=== PATIENT | male | born 1965 | race African-American/Black ===

== ENCOUNTER 2018-02-27 09:46 | Day surgery (SDC) | payer OTHER ==
[2018-02-26 14:14] LABS: Absolute Lymphocytes (CBC) 2.4 K/uL (0.7-4.9); Absolute Monocytes 0.5 K/uL (0.1-1.3); Absolute Neutrophil 2.9 K/uL (1.8-8.0); Basophils % 1.4 % (0-1.3); Eosinophils % 7.1 % (0-4.4); Hematocrit 42.1 % (39.6-49.0); Lymphocytes % 37.5 % (15.3-44.8); MCH 27.2 pg (27.0-35.0); MCV 83.5 fL (80-100); MPV 8.3 fL (7.6-11.3); Monocytes % 7.7 % (3.3-12.3); RBC Red Blood Cell Count 5.05 M/uL (4.33-5.43)
[2018-02-26 14:23] LABS: Potassium 3.2 mEq/L (3.6-5.0)
--- NOTE | 2018-02-26 14:29 | RAD REPORT ---
EXAM DESCRIPTION: RAD - Chest Pa And Lat (2 Views) - 02/26/2018 2:13 pm CLINICAL HISTORY: Preop chest, pending soft tissue mass removal COMPARISON: None. TECHNIQUE: PA and lateral views of the chest were obtained. FINDINGS: The lungs are normal volume. Diaphragmatic eventration is present. Lateral view is limited in detail by body habitus. No acute lung parenchymal process suspected. No failure finding. Trachea is in the midline. Heart size is normal and central vasculature is within normal limits. No pleura l effusion or pneumothorax seen. No acute bony finding noted. No aortic abnormality. IMPRESSION: No acute cardiopulmonary process.
[2018-02-27] MEDS: Ringers Lactate 1,000 ML IV ONE ×2 (09:46→12:46)
[2018-02-27] MEDS ORDERED: CEFAZOLIN/SWI 1gm 1 GM/10 ML SYR ONE (10:10)
[2018-02-27] MEDS ORDERED: Ringers Lactate 1,000 ML IV ONE (11:54)
[2018-02-27] MEDS ORDERED: LIDOCAINE 1% MPF 5 ML VIAL ONE (12:36)
[2018-02-27] MEDS ORDERED: MIDAZOLAM HCL 2 MG/2 ML INJ ONE (12:36)
[2018-02-27] MEDS ORDERED: FENTANYL CITR 100 MCG/2 ML ONE (12:36)
[2018-02-27] MEDS ORDERED: PROPOFOL 200 MG/20 ML VIAL IV ONE (12:36)
[2018-02-27] MEDS ORDERED: KETOROLAC 30 MG/ML INJ ONE (14:25)
[2018-02-27] MEDS ORDERED: ONDANSETRON 4 MG/2 ML VIAL ONE (14:25)
--- NOTE | 2018-02-27 14:31 | P.BOP ---
Preoperative diagnosis: infected tender back deep subcutanoeus mass Postoperative diagnosis: same with abscess Primary procedure: Excisional biopsy of infected tender back deep subcutanoeus mass Secondary procedure: 6x5 cm Estimated blood loss: <10cc Specimen: mass, culture Findings: mass with abscess Anesthesia: General Complications: None Drain(s): Other Transferred to: Recovery Room Condition: Good
[2018-02-27] MEDS ORDERED: CODEINE 30MG/APAP 300MG TAB ONE (15:40)
--- NOTE | 2018-03-05 04:19 | OP ---
Date of Procedure: 02/27/2018 Surgeon: Rc Duran MD Preoperative Diagnosis: Infected tender back deep subcutaneous mass. Postoperative Diagnosis: Infected tender back deep subcutaneous mass. Procedure Performed: Excisional biopsy of infected tender back deep subcutaneous mass with drainage of an abscess, mass is about 6 x 5 cm. Specimen: Mass and culture. Findings: Mass with abscess. Anesthesia: General plus local. Indication For Procedure: This is the case of a male, who comes to us with an infected large tender back mass with cellulitis present. The benefits, alternatives, and risks of excision were fully expl ained, which include but are not limited to infection, bleeding, damage to adjacent structures, anest hesia complication, nonhealing wound, VA, and even . He also understands this may not relieve a ny symptoms, and he might need more than one surgical intervention. He understands also he might nee d wound care. He signed a consent. Description Of Procedure: The patient was brought to the operating room, placed in supine position. Previously, the area was marked by me and the patient in the holding room. The patient was placed i n lateral decubitus position with proper protection. Time-out was called. The area was prepped and draped in a sterile fashion. We proceeded to make an incision over that area until we found the mass deep in the subcutaneous tissue. Once we find that mass, at the end of this mass there is an absces s near the area of the fascia of the muscle. The muscle seems not to be involved, but the fascia see ms to be contaminated with the pus. We irrigated the area, clean it, also removed the mass. The are a was irrigated. Hemostasis obtained. The area was packed with wet-to-dry dressing. Cultures were obtained from that area. The patient tolerated the procedure well. The patient was sent to recovery in stable con dition. NORTH/SIGRID Voice ID: [id number] Report ID: [id number]
--- NOTE | 2018-03-05 04:25 | DS ---
Date of Discharge: 02/27/2018 Diagnosis: Infected back mass. Procedure: Excisional biopsy of infected back mass with a drainage of an abscess. Disposition: Home. Activity: As tolerated. No heavy lifting. Followup: Follow up in my office in 1 week. Call for appointment at [phone]. The patient advised to use wet-to-dry dressing daily. Medications: See orders. NORTH/SIGRID Voice ID: [id number] Report ID: [id number]
== END 2018-02-27 15:53 | disposition home or self-care (01) ==
LOC: OR 09:46
PROVIDERS: ATTEND Surgery
PROC: 0JB70ZZ Excision of Back Subcutaneous Tissue and Fascia, Open Approach (ICD-10-PCS; principal; 2018-02-27 11:15)
DX: L72.0 Epidermal cyst (principal); L02.212 Cutaneous abscess of back [any part, except buttock and flank]; I10 Essential (primary) hypertension; E66.9 Obesity, unspecified; Z88.6 Allergy status to analgesic agent
CPT/HCPCS: 36415; 71046; 80048; 85025; 87070; 87075; 87205; 88304; 88305; 93005; J0690; J2250; J2405; J3010

== ENCOUNTER 2020-03-02 11:10 | Inpatient (IN) | payer OTHER ==
[2020-03-02] MEDS ORDERED: ONDANSETRON 4 MG/2 ML VIAL ONE (11:48)
[2020-03-02] MEDS ORDERED: MORPHINE 2 MG/ML SYR ONE (11:48)
[2020-03-02] MEDS ORDERED: NA CHLORIDE 0.9% 1,000 ML ONE (11:48)
[2020-03-02] MEDS ORDERED: PIPER/TAZO/NS 3.375gm 3.375 GM/100 ML BAG ONE (11:48)
[2020-03-02] MEDS ORDERED: FAMOTIDINE 20 MG/2 ML VIAL IV ONE (11:48)
[2020-03-02 12:12] LABS: Absolute Lymphocytes (CBC) 1.3 K/uL (0.7-4.9); Basophils % 0.5 % (0-1.3); Hematocrit 41.1 % (39.6-49.0); Lymphocytes % 8.7 % (15.3-44.8); MPV 8.6 fL (7.6-11.3); RBC Red Blood Cell Count 4.98 M/uL (4.33-5.43)
[2020-03-02 12:14] LABS: Urine Blood 2+ (NEG); Urine Glucose NEGATIVE (NEG); Urine Protein 3+ (NEG)
[2020-03-02] MEDS ORDERED: ACETAMINOPHEN 500 MG TAB ONE (12:16)
--- NOTE | 2020-03-02 12:21 | RAD REPORT ---
EXAM DESCRIPTION: RAD - Chest Single View - 03/02/2020 11:55 am CLINICAL HISTORY: ABDOMINAL DISTENTION, cholecystitis, preoperative exam COMPARISON: February 26, 2018 TECHNIQUE: AP portable chest image was obtained 03/02/2020 11:55 am . FINDINGS: Lung volumes are low but clear of a focal mass or consolidation. No failure or volume over load. Heart and vasculature are normal. No measurable pleural effusion and no pneumothorax. No acute bony abnormality seen. No acute aortic findings suspected. IMPRESSION: No acute cardiopulmonary process.
[2020-03-02 12:23] LABS: Protime INR 1.5
[2020-03-02 12:44] LABS: ALT/SGPT 42 U/L (12-78); AST/SGOT 26 U/L (15-37); Albumin 3.2 g/dL (3.4-5.0); Alkaline Phosphatase 86 U/L (45-117); BUN Blood Urea Nitrogen 16 mg/dL (7-18); Bicarbonate 28 mmol/L (21-32); Bilirubin Direct 0.5 mg/dL (0-0.2); Bilirubin Total 1.1 mg/dL (0.2-1.0); Glucose Level 132 mg/dL (74-106); Lipase 42 U/L (73-393); Magnesium 2.2 mg/dL (1.8-2.4); NT PRO-BNP 143 pg/mL (<125); Potassium 2.9 mmol/L (3.5-5.1); Protein, Total 8.8 g/dL (6.4-8.2); Sodium Level 132 mmol/L (136-145); Troponin (Emerg Dept Use Only) < 0.02 ng/mL (0.0-0.045)
--- NOTE | 2020-03-02 13:06 | EDPHYS ---
Physician Documentation [facility] Name: Momo Saldivar Age: 54 yrs Sex: Male : 1965 Arrival Date: 03/02/2020 Time: 11:12 Bed 8 Private MD: Macho Rivera ED Physician Huan Patel HPI: 03/02 11:51 This 54 yrs old Black Male presents to ER via Wheelchair with complaints of Gallbladder.ankur 11:51 The patient presents with abdominal pain in the upper abdomen, in the right upper ankur quadrant. Onset: The symptoms/episode began/occurred 5 day(s) ago. The symptoms do not radiate. Associated signs and symptoms: none. The symptoms are described as constant, crampy. Modifying factors: The symptoms are alleviated by nothing, the symptoms are aggravated by food, movement, pressure. Severity of pain: At its worst the pain was moderate in the emergency department the pain is unchanged. The patient has experienced similar episodes in the past, a few times. Historical: - Allergies: 11:30 Aspirin; nausea; hb - Home Meds: 11:30 valsartan-hydrochlorothiazide 320-12.5 mg Oral tab 1 tab once daily [Active]; Coreg CR hb 40 mg Oral CM24 1 cap once daily [Active]; - PMHx: 11:30 Hypertension; hb - PSHx: 11:30 BACK SURG; hb - Immunization history:: Adult Immunizations up to date. - Social history:: Smoking status: Patient denies any tobacco usage or history of. - Family history:: not pertinent. ROS: 11:51 Constitutional: Negative for fever, chills, and weight loss, Eyes: Negative for injury, ankur pain, redness, and discharge, ENT: Negative for injury, pain, and discharge, Neck: Negative for injury, pain, and swelling, Cardiovascular: Negative for chest pain, palpitations, and edema, Respiratory: Negative for shortness of breath, cough, wheezing, and pleuritic chest pain, Back: Negative for injury and pain, : Negative for injury, bleeding, discharge, and swelling, MS/Extremity: Negative for injury and deformity, Skin: Negative for injury, rash, and discoloration, Neuro: Negative for headache, weakness, numbness, tingling, and seizure, Psych: Negative for depression, anxiety, suicide ideation, homicidal ideation, and hallucinations, Allergy/Immunology: Negative for hives, rash, and allergies, Endocrine: Negative for neck swelling, polydipsia, polyuria, polyphagia, and marked weight changes, Hematologic/Lymphatic: Negative for swollen nodes, abnormal bleeding, and unusual bruising. 11:51 Abdomen/GI: Positive for abdominal pain, nausea and vomiting, of the right upper quadrant. Exam: 11:51 Constitutional: This is a well developed, well nourished patient who is awake, alert, ankur and in no acute distress. Head/Face: Normocephalic, atraumatic. Eyes: Pupils equal round and reactive to light, extra-ocular motions intact. Lids and lashes normal. Conjunctiva and sclera are non-icteric and not injected. Cornea within normal limits. Periorbital areas with no swelling, redness, or edema. ENT: Nares patent. No nasal discharge, no septal abnormalities noted. Tympanic membranes are normal and external auditory canals are clear. Oropharynx with no redness, swelling, or masses, exudates, or evidence of obstruction, uvula midline. Mucous membranes moist. Neck: Trachea midline, no thyromegaly or masses palpated, and no cervical lymphadenopathy. Supple, full range of motion without nuchal rigidity, or vertebral point tenderness. No Meningismus. Chest/axilla: Normal chest wall appearance and motion. Nontender with no deformity. No lesions are appreciated. Cardiovascular: Regular rate and rhythm with a normal S1 and S2. No gallops, murmurs, or rubs. Normal PMI, no JVD. No pulse deficits. Respiratory: Lungs have equal breath sounds bilaterally, clear to auscultation and percussion. No rales, rhonchi or wheezes noted. No increased work of breathing, no retractions or nasal flaring. Back: No spinal tenderness. No costovertebral tenderness. Full range of motion. Male : Normal genitalia with no discharge or lesions. Skin: Warm, dry with normal turgor. Normal color with no rashes, no lesions, and no evidence of cellulitis. MS/ Extremity: Pulses equal, no cyanosis. Neurovascular intact. Full, normal range of motion. Neuro: Awake and alert, GCS 15, oriented to person, place, time, and situation. Cranial nerves II-XII grossly intact. Motor strength 5/5 in all extremities. Sensory grossly intact. Cerebellar exam normal. Normal gait. Psych: Awake, alert, with orientation to person, place and time. Behavior, mood, and affect are within normal limits. 11:51 Cardiovascular: Rate: normal, Rhythm: regular, Pulses: no pulse deficits are appreciated, Heart sounds: normal, Edema: is not appreciated, JVD: is not appreciated. Vital Signs: 11:28 BP 138 / 79; Pulse 101; Resp 16; Temp 98.5; Pulse Ox 96% on R/A; Weight 281.23 kg; hb Height 6 ft. 3 in. (190.50 cm); Pain 7/10; 14:16 BP 137 / 67; Pulse 94; Resp 20 S; Pulse Ox 97% on R/A; aa5 15:00 BP 128 / 67; Pulse 93; Resp 18 S; Pulse Ox 98% on R/A; aa5 11:28 Body Mass Index 77.49 (281.23 kg, 190.50 cm) hb MDM: 11:38 Patient medically screened. [facility] 11:54 Data reviewed: vital signs, nurses notes, lab test result(s), EKG, radiologic studies, [facility] CT scan, plain films. 03/02 11:14 Order name: Basic Metabolic Panel; Complete Time: 12:59 [facility] 03/02 11:14 Order name: CBC with Diff; Complete Time: 12:59 [facility] 03/02 11:14 Order name: LFT's; Complete Time: 12:59 [facility] 03/02 11:14 Order name: Magnesium; Complete Time: 12:59 [facility] 03/02 11:14 Order name: NT PRO-BNP; Complete Time: 12:59 [facility] 03/02 11:14 Order name: PT-INR; Complete Time: 12:59 [facility] 03/02 11:14 Order name: Troponin (emerg Dept Use Only); Complete Time: 12:59 [facility] 03/02 11:14 Order name: XRAY Chest (1 view); Complete Time: 12:59 [facility] 03/02 11:14 Order name: Lipase; Complete Time: 12:59 [facility] 03/02 11:51 Order name: Urine Dipstick--Ancillary (enter results); Complete Time: 12:59 bd 03/02 13:16 Order name: Lipase EDMS 03/02 11:14 Order name: EKG; Complete Time: 11:16 [facility] 03/02 11:14 Order name: Cardiac monitoring; Complete Time: 11:40 [facility] 03/02 11:14 Order name: EKG - Nurse/Tech; Complete Time: 11:46 [facility] 03/02 11:14 Order name: IV Saline Lock; Complete Time: 12:15 [facility] 03/02 11:14 Order name: Labs collected and sent; Complete Time: 12:15 [facility] 03/02 13:16 Order name: CONS Pharmacy Consult EDKS 03/02 13:16 Order name: CONS Physician Consult [facility] 03/02 13:16 Order name: CONS Physician Consult [facility] 03/02 13:17 Order name: Clear Liquid [facility] 03/02 11:14 Order name: O2 Per Protocol; Complete Time: 11:40 [facility] 03/02 11:14 Order name: O2 Sat Monitoring; Complete Time: 11:40 [facility] 03/02 11:14 Order name: Urine Dipstick-Ancillary (obtain specimen); Complete Time: 11:53 [facility] Administered Medications: 12:02 Drug: NS 0.9% 1000 ml Route: IV; Rate: 1 bolus; Site: left antecubital; aa5 12:02 Drug: Pepcid 20 mg Route: IVP; Site: left antecubital; aa5 12:10 Follow up: Response: No adverse reaction aa5 12:10 Drug: Zosyn 3.375 grams Route: IVPB; Infused Over: 60 mins; Site: left antecubital; aa5 12:16 Not Given (Patient Refused): morphine 2 mg IVP once; (PAIN>8) RASS on ADMN: Combtv4, aa5 Very Agttd3, Agttd2, Rstlss1, AlertClm0, Drwsy-1, LtSdtn-2, ModSdtn-3, DpSdtn-4, UnArsble-5 x2 12:16 Not Given (Patient Refused): Zofran (Ondansetron) 4 mg IVP once; over 2 minutes aa5 12:16 Drug: Tylenol 1000 mg {Note: with only a sip of water per MD. .} Route: PO; aa5 13:20 Follow up: Response: No adverse reaction aa5 13:20 Drug: Potassium Chloride 20 mEq Route: IV; Rate: per protocol; Site: left antecubital; aa5 15:15 Follow up: IV Status: Infusion continued upon admission aa5 13:20 Drug: Potassium Chloride 20 mEq Route: IV; Rate: per protocol; Site: left antecubital; aa5 15:15 Follow up: Response: No adverse reaction; IV Status: Completed infusion aa5 13:20 Drug: NS 0.9% with KCl 20 mEq/L 1000 ml Route: IV; Rate: 125 ml/hr; Site: left aa5 antecubital; 15:15 Follow up: IV Status: Infusion continued upon admission aa5 13:36 Drug: Potassium Chloride 20 mEq Route: PO; aa5 15:15 Follow up: Response: No adverse reaction aa5 Disposition: 03/02/20 13:05 Hospitalization ordered by Tree Mueller for Inpatient Admission. Preliminary diagnosis are Abdominal tenderness, Cholelithiasis, Cholecystitis, Unspecified kidney failure, Hypokalemia, Elevated white blood cell count. - Bed requested for Telemetry/MedSurg (Inpatient). - Status is Inpatient Admission. aa5 - Condition is Stable. - Problem is new. - Symptoms have improved. Signatures: Dispatcher [employer] EDMS Janie Berry Corey, MD MD cha Calderon, Audri RN RN [facility] Alka Hylton RN RN Corrections: (The following items were deleted from the chart) 13:25 13:05 Hospitalization Ordered by Tree Mueller MD for Inpatient Admission. Preliminary bd diagnosis is Abdominal tenderness; Cholelithiasis; Cholecystitis; Unspecified kidney failure; Hypokalemia; Elevated white blood cell count. Bed requested for Telemetry/MedSurg (Inpatient). Status is Inpatient Admission. Condition is Stable. Problem is new. Symptoms have improved. ankur 15:21 13:25 03/02/2020 13:05 Hospitalization Ordered by Tree Mueller MD for Inpatient aa5 Admission. Preliminary diagnosis is Abdominal tenderness; Cholelithiasis; Cholecystitis; Unspecified kidney failure; Hypokalemia; Elevated white blood cell count. Bed requested for Telemetry/MedSurg (Inpatient). Status is Inpatient Admission. Condition is Stable. Problem is new. Symptoms have improved. bd
--- NOTE | 2020-03-02 13:06 | ER ---
Nurse's Notes [facility] Name: Momo Saldivar Age: 54 yrs Sex: Male : 1965 Arrival Date: 03/02/2020 Time: 11:12 Bed 8 Private MD: Macho Rivera Diagnosis: Abdominal tenderness;Cholelithiasis;Cholecystitis;Unspecified kidney failure;Hypokalemia;Elevated white blood cell count Presentation: 03/02 11:28 Chief complaint: RUQ pain x 3-4 days, diarrhea today. Denies fever. Coronavirus screen: hb Proceed with normal triage. Ebola Screen: No symptoms or risks identified at this time. Initial Sepsis Screen: Does the patient meet any 2 criteria? HR > 90 bpm. No. Patient's initial sepsis screen is negative. Does the patient have a suspected source of infection? No. Patient's initial sepsis screen is negative. Risk Assessment: Do you want to hurt yourself or someone else? Patient reports no desire to harm self or others. Onset of symptoms was February 28, 2020. 11:28 Method Of Arrival: Wheelchair hb 11:28 Acuity: CHELSEY 3 hb Historical: - Allergies: 11:30 Aspirin; nausea; hb - Home Meds: 11:30 valsartan-hydrochlorothiazide 320-12.5 mg Oral tab 1 tab once daily [Active]; Coreg CR hb 40 mg Oral CM24 1 cap once daily [Active]; - PMHx: 11:30 Hypertension; hb - PSHx: 11:30 BACK SURG; hb - Immunization history:: Adult Immunizations up to date. - Social history:: Smoking status: Patient denies any tobacco usage or history of. - Family history:: not pertinent. Screenin:17 Abuse screen: Denies threats or abuse. Nutritional screening: No deficits noted. aa5 Tuberculosis screening: No symptoms or risk factors identified. Fall Risk None identified. Assessment: 11:45 General: Appears comfortable, Behavior is calm, cooperative. Pain: Complains of pain in aa5 right upper quadrant Pain does not radiate. Pain currently is 6 out of 10 on a pain scale. Quality of pain is described as tender, Pain began 2-3 days ago. Is continuous. Neuro: Level of Consciousness is awake, alert, obeys commands, Oriented to person, place, time, situation. Cardiovascular: Heart tones S1 S2 present Patient's skin is warm and dry. Rhythm is sinus rhythm. Respiratory: Airway is patent Respiratory effort is even, unlabored, Respiratory pattern is regular, symmetrical. GI: Abdomen is round obese, Bowel sounds present X 4 quads. Abdomen is tender to palpation in right upper quadrant Reports diarrhea. : No signs and/or symptoms were reported regarding the genitourinary system. EENT: No signs and/or symptoms were reported regarding the EENT system. Derm: Skin is dry, Skin is normal, Skin temperature is warm. Musculoskeletal: Range of motion: intact in all extremities. 12:16 Reassessment: Pt c/o headache at this time, MD notified. . aa5 12:16 Neuro: Level of Consciousness is awake, alert, obeys commands, Oriented to person, aa5 place, time, situation. Respiratory: Airway is patent Respiratory effort is even, unlabored, Respiratory pattern is regular, symmetrical. Derm: Skin is dry, Skin is normal, Skin temperature is warm. 13:20 Reassessment: Pt sitting up in bed watching TV. aa5 13:35 Reassessment: Unsuccessful attempt to call report to admitting nurse. . aa5 13:40 Reassessment: Pt sitting up in bed eating clear liquid diet, pt notified of wait time aa5 to be transported to admitting room. . 15:15 Neuro: Level of Consciousness is awake, alert, obeys commands, Oriented to person, aa5 place, time, situation. Respiratory: Airway is patent Respiratory effort is even, unlabored, Respiratory pattern is regular, symmetrical. Derm: Skin is dry, Skin is normal, Skin temperature is warm. Vital Signs: 11:28 BP 138 / 79; Pulse 101; Resp 16; Temp 98.5; Pulse Ox 96% on R/A; Weight 281.23 kg; hb Height 6 ft. 3 in. (190.50 cm); Pain 7/10; 14:16 BP 137 / 67; Pulse 94; Resp 20 S; Pulse Ox 97% on R/A; aa5 15:00 BP 128 / 67; Pulse 93; Resp 18 S; Pulse Ox 98% on R/A; aa5 11:28 Body Mass Index 77.49 (281.23 kg, 190.50 cm) hb ED Course: 11:12 Patient arrived in ED. as 11:12 Macho Rivera MD is Private Physician. as 11:12 Huan Patel MD is Attending Physician. ankur 11:29 Triage completed. hb 11:30 Arm band placed on. hb 11:35 Gracie Cardona, ROSSANA is Primary Nurse. aa5 11:45 Patient has correct armband on for positive identification. Placed in gown. Bed in low aa5 position. Call light in reach. Side rails up X 1. 11:[address] monitor on. Pulse ox on. NIBP on. mh5 11:51 Urine collected: clean catch specimen, tea colored. mh5 11:55 Missed attempt(s): 20 gauge in right forearm. Bleeding controlled, band aid applied, aa5 catheter tip intact. 11:56 XRAY Chest (1 view) In Process Unspecified. EDMS 12:00 Initial lab(s) drawn, by me, sent to lab. Inserted saline lock: 20 gauge in left aa5 antecubital area, using aseptic technique. 12:45 Notified ED physician of a critical lab result(s). Potassium 2.9. aa5 13:04 Tree Mueller MD is Hospitalizing Provider. ankur 15:15 No provider procedures requiring assistance completed. Patient admitted, IV remains in aa5 place. Administered Medications: 12:02 Drug: NS 0.9% 1000 ml Route: IV; Rate: 1 bolus; Site: left antecubital; aa5 12:02 Drug: Pepcid 20 mg Route: IVP; Site: left antecubital; aa5 12:10 Follow up: Response: No adverse reaction aa5 12:10 Drug: Zosyn 3.375 grams Route: IVPB; Infused Over: 60 mins; Site: left antecubital; aa5 12:16 Not Given (Patient Refused): morphine 2 mg IVP once; (PAIN>8) RASS on ADMN: Combtv4, aa5 Very Agttd3, Agttd2, Rstlss1, AlertClm0, Drwsy-1, LtSdtn-2, ModSdtn-3, DpSdtn-4, UnArsble-5 x2 12:16 Not Given (Patient Refused): Zofran (Ondansetron) 4 mg IVP once; over 2 minutes aa5 12:16 Drug: Tylenol 1000 mg {Note: with only a sip of water per MD. .} Route: PO; [facility] 13:20 Follow up: Response: No adverse reaction [facility] 13:20 Drug: Potassium Chloride 20 mEq Route: IV; Rate: per protocol; Site: left antecubital; aa5 15:15 Follow up: IV Status: Infusion continued upon admission [facility] 13:20 Drug: Potassium Chloride 20 mEq Route: IV; Rate: per protocol; Site: left antecubital; aa5 15:15 Follow up: Response: No adverse reaction; IV Status: Completed infusion [facility] 13:20 Drug: NS 0.9% with KCl 20 mEq/L 1000 ml Route: IV; Rate: 125 ml/hr; Site: left aa5 antecubital; 15:15 Follow up: IV Status: Infusion continued upon admission [facility] 13:36 Drug: Potassium Chloride 20 mEq Route: PO; [facility] 15:15 Follow up: Response: No adverse reaction [facility] Outcome: 13:05 Decision to Hospitalize by Provider. ankur 15:15 Admitted to Med/surg accompanied by tech, via wheelchair, with chart, Report called to [facility] ROSSANA MONTOYA 15:15 Condition: stable 15:15 Instructed on the need for admit, Demonstrated understanding of instructions. 15:21 Patient left the ED. [facility] Signatures: Dispatcher [employer] EDHuan Canales MD MD cha Martinez, Amelia as Calderon, Audri, RN RN [facility] Alka Hylton, Eva Phillip RN [facility] Corrections: (The following items were deleted from the chart) 12:19 11:50 Patient has correct armband on for positive identification. Placed in gown. Bed aa in low position. Call light in reach. Side rails up X 1. [facility]
[2020-03-02] MEDS ORDERED: MORPHINE 2 MG/ML SYR IV PRN (13:08)
[2020-03-02] MEDS ORDERED: ALBUTEROL 2.5 MG/3 ML NEB SOL NEB PRN ×2 (13:08→14:00)
[2020-03-02] MEDS ORDERED: ONDANSETRON 4 MG/2 ML VIAL IV PRN (13:08)
[2020-03-02] MEDS ORDERED: HYDRALAZINE HCL 20 MG/ML VIAL IV PRN (13:12)
[2020-03-02] MEDS ORDERED: NS KCL 20MEQ 1,000 ML IV ONE (13:19)
[2020-03-02] MEDS ORDERED: KCL 20 MEQ/100 mL IVPB 40 MEQ/200 ML BAG IV ONE (13:20)
[2020-03-02] MEDS ORDERED: POTASSIUM CL SA 10 MEQ TAB PO ONE (13:39)
[2020-03-02] MEDS: NS KCL 20MEQ 20 MEQ/1,000 ML BAG IV SCH (14:00)
--- NOTE | 2020-03-02 15:12 | P.HP ---
Certification for Inpatient With expected LOS: >2 Midnights Patient will require the following post-hospital care: None Practitioner: I am a practitioner with admitting privileges, knowledge of patient current condition, hospital course, and medical plan of care. Services: Services provided to patient in accordance with Admission requirements found in Title 42 Section 412.3 of the Code of Federal Regulations Patient History Date of Service: 03/02/20 Reason for admission: Right upper quadrant pain History of Present Illness: 54-year-old male with past medical history of hypertension, morbid obesity developed rectal polyp for an pain radiating to the epigastric area since the last 1 week and continue to worsen. Patient was evaluated by a primary care and started on antibiotics yesterday. He presented to the emergency room today because of persistent symptoms. He denies any cough or shortness of breath. He described pain Ativan at 10/10 with improvement with pain medication to 6/10. He admits to some nausea but no vomiting. Nausea has subsided since arrival in the ED. He denies any diarrhea. He had a CT of the abdomen done with finding of acute cholecystitis with associated cholelithiasis. Surgery has been discussed with plan to take patient to OR in a.m.. Patient potassium was noted low at 2.9 Allergies aspirin Allergy (Verified 02/27/18 10:51) Unknown Home Medications: Metoprolol Succinate [Toprol Xl] 100 mg PO DAILY 02/26/18 Valsartan/Hydrochlorothiazide [Valsartan-Hctz 320-25 mg Tab] 1 tab PO DAILY 02/26/18 Codeine/APAP [Tylenol W/Codeine #3 tab] 1 tab PO Q4HP PRN #30 tab 02/27/18 NaCl 0.9% Irr Bottle [Ns Irrigation Bottle] 1,000 ml IRR DAILY #1 btl 02/27/18 Review of Systems 10-point ROS is otherwise unremarkable Physical Examination - Physical Exam General: Alert, Oriented x3, Oriented x2, Obese HEENT: Atraumatic, Normocephalic, PERRLA, Mucous membr. moist/pink Neck: 2+ carotid pulse no bruit, JVD not distended Respiratory: Clear to auscultation bilaterally, Normal air movement Cardiovascular: Normal pulses, Regular rate/rhythm, Normal S1 S2 Gastrointestinal: Normal bowel sounds, Soft and benign, Non-distended, No rebound, No guarding, Tenderness (Right upper quadrant area) Musculoskeletal: No clubbing, No swelling Neurological: Normal speech, Normal strength at 5/5 x4 extr, Normal tone External genitalia: No edema, No lesions - Studies Laboratory Data (last 24 hrs) 03/02/20 12:00: PT 17.6 H, INR 1.50 03/02/20 12:00: WBC 15.4 H, Hgb 13.7, Hct 41.1, Plt Count 315 03/02/20 12:00: Sodium 132 L, Potassium 2.9 L*, BUN 16, Creatinine 1.89 H, Glucose 132 H, Magnesium 2.2, Total Bilirubin 1.1 H, AST 26, ALT 42, Alkaline Phosphatase 86, Lipase 42 L Imagings Data: CT abdomen reviewed Assessment and Plan - Problems (Diagnosis) (1) Cholecystitis, acute Current Visit: Yes Status: Acute (2) Cholecystitis with cholelithiasis Current Visit: Yes Status: Acute (3) HTN (hypertension) Current Visit: Yes Status: Acute - Advance Directives Does patient have a Living Will: No Does patient have a Durable POA for Healthcare: No Physician Review: Patient Assessed, Agree with Above Assessment and Plan Physician Review Additional Text: Acute cholecystitis-we start patient on empirical antibiotics with Zosyn -will replete potassium -follow surgery planned falls cholecystectomy in a.m. -we keep patient NPO past midnight , but start clear liquid diet for now Hypertension-controlled, hold Diovan/HCTZ for now -resume metoprolol -we do IV hydralazine p.r.n. Hypokalemia-will replete with 40 mEq x1, start NS with KCl. DVT prophylaxis-subcutaneous heparin Advanced directives patient is full code. Disposition -possible hospital stay for 24-48 hr
[2020-03-02 15:44] VITALS: BMI 39.9
[2020-03-02] MEDS: HEPARIN 5000 UNIT/ML 1 ML VIAL SQ SCH (16:55)
[2020-03-02] MEDS ORDERED: INFLUENZA VACCINE (for 3y+) 0.5 ML DOSE IMVAC ONE (17:00)
[2020-03-02] MEDS: PIPER/TAZO/NS 3.375gm 3.375 GM/100 ML BAG IVPB SCH (17:24)
[2020-03-02] MEDS: FAMOTIDINE 20 MG/2 ML VIAL IV SCH (21:02)
[2020-03-03] MEDS: NS KCL 20MEQ 20 MEQ/1,000 ML BAG IV SCH ×3 (00:13→20:00)
[2020-03-03] MEDS: PIPER/TAZO/NS 3.375gm 3.375 GM/100 ML BAG IVPB SCH ×3 (00:14→16:53)
[2020-03-03] MEDS: HEPARIN 5000 UNIT/ML 1 ML VIAL SQ SCH ×3 (00:21→17:00)
[2020-03-03 04:29] LABS: Absolute Lymphocytes (CBC) 1.3 K/uL (0.7-4.9); Basophils % 0.6 % (0-1.3); Hematocrit 36.2 % (39.6-49.0); Lymphocytes % 10.8 % (15.3-44.8); MPV 8.5 fL (7.6-11.3); RBC Red Blood Cell Count 4.35 M/uL (4.33-5.43)
[2020-03-03 04:40] LABS: Bilirubin Total 0.9 mg/dL (0.2-1.0); Potassium 3.2 mmol/L (3.5-5.1); Protein, Total 7.5 g/dL (6.4-8.2)
[2020-03-03 04:41] LABS: Albumin 2.6 g/dL (3.4-5.0)
[2020-03-03] MEDS: METOPROLOL XL 100 MG TAB PO SCH (08:25)
[2020-03-03] MEDS: FAMOTIDINE 20 MG/2 ML VIAL IV SCH ×2 (08:27→22:09)
[2020-03-03] MEDS ORDERED: Ringers Lactate 1,000 ML IV ONE ×2 (08:50→11:09)
[2020-03-03] MEDS ORDERED: dexAMETHasone 10 MG/ML VIAL ONE (09:50)
[2020-03-03] MEDS ORDERED: LIDOCAINE 2% MPF 5 ML VIAL ONE (09:50)
[2020-03-03] MEDS ORDERED: MIDAZOLAM HCL 2 MG/2 ML INJ ONE (09:50)
[2020-03-03] MEDS ORDERED: FENTANYL CITR 100 MCG/2 ML ONE (09:50)
[2020-03-03] MEDS ORDERED: propofoL 200 MG/20 ML VIAL IV ONE (09:50)
[2020-03-03] MEDS ORDERED: ROCURONIUM 50 MG/5 ML VIAL IV ONE (09:53)
--- NOTE | 2020-03-03 09:58 | PREOPCON ---
Date of Consultation: 03/02/2020 Reason For Consultation: Abdominal pain. History Of Present Illness: Patient is a 54-year-old gentleman, came to the emergency room with righ t upper quadrant abdominal pain off and on for the last week, worsening. He has nausea, some bloatin g, and no belching or heartburn. No diarrhea or constipation. No blood in the stool. No dysuria, h ematuria, no sore throat, runny nose, cough, headaches, or dizziness. No chest pain. No fever or ch ills. Review of Systems: Otherwise unremarkable. Past Medical History: Significant for high blood pressure. Past Surgical History: Back surgery. Allergies: INCLUDE ASPIRIN. Social History: Patient does not smoke. Drinks very occasionally. Family History: Significant for high blood pressure. Physical Examination: Vital Signs: Stable. He is currently afebrile. General: He is awake, alert. Head and Neck: There is no evidence of icterus. Cranial nerves 2 through 12 are grossly within norm al limits. No neck masses. No JVD. Throat clear. Neck supple. Chest: Clear. Heart: S1 and S2. Abdomen: Soft, nondistended. Positive bowel sounds. Positive right upper quadrant tenderness with rebound. No rigidity or guarding. Extremity: Adequately perfused. Nontender. Neuro: Nonfocal. Laboratory Data: White count was 15.4 yesterday, is 11.6 this morning. INR is 1.5. Chemistry showe d potassium to be 2.9 and today is 3.2. His AST, ALT, alkaline phosphatase all within normal limits and today the total bilirubin is within normal limits. Lipase was also within normal limits. His CT of the abdomen and pelvis was reviewed with the radiologist, and it shows grossly abnormal gallbladd er with wall thickening, gallstones and significant stranding in the adjacent fat. Assessment: 1.Acute cholecystitis and cholelithiasis. 2.Hypokalemia. Recommendations: Admit, n.p.o., IV fluid, IV antibiotic, to the OR for laparoscopic cholecystectomy, possible open. The patient understands the risks, benefits, and alternatives and agrees to procedur e. The plan of care was discussed with Dr. Mendoza. MO/SIGRID Voice ID: [id number] Report ID: [id number]
[2020-03-03] MEDS ORDERED: FENTANYL CITR 250 MCG/5 ML ONE (10:27)
[2020-03-03] MEDS ORDERED: KETOROLAC 30 MG/ML INJ ONE (11:21)
[2020-03-03] MEDS ORDERED: NEOSTIGMINE 1 MG/ML -5 ML ONE (11:21)
[2020-03-03] MEDS ORDERED: GLYCOPYRROLATE 0.2 MG/ML SYR ONE (11:21)
[2020-03-03] MEDS ORDERED: MORPHINE 10 MG/ML VIAL ONE (11:43)
--- NOTE | 2020-03-03 11:43 | P.OP ---
Plastics Technician: Michelle CHARLES Preoperative diagnosis: Acute Cholecystitis and Cholelithiasis Postoperative diagnosis: Same, Acute Gangrenous Cholecystitis Primary procedure: Diagnostic Laparoscopy, Open Cholecystectomy Anesthesia: General Estimated blood loss: Minimal Specimen: GB Findings: as above Complications: None Drain(s): SAMANTHA drain Transferred to: Recovery Room Condition: Good
[2020-03-03] MEDS ORDERED: HYDROMORPHONE HCL 1 MG/ML INJ IV PRN (11:56)
--- NOTE | 2020-03-03 15:55 | EKG ---
Test Date: 2020-03-02 Test Time: 11:51:16 Customs Guard: LOREN MEASUREMENT RESULTS: Intervals: Rate: 106 OK: 174 QRSD: 86 QT: 328 QTc: 435 Jewett: P: 43 OK: 174 QRS: 52 T: 33 INTERPRETIVE STATEMENTS: Sinus tachycardia Nonspecific ST and T wave abnormality Abnormal ECG Compared to ECG 02/26/2018 13:44:40 ST (T wave) deviation now present Sinus rhythm no longer present Electronically Signed On 03-03-20 15:50:49 CDT by Thuan Wise
--- NOTE | 2020-03-03 16:13 | P.PN ---
Subjective Date of Service: 03/03/20 Chief Complaint: Right upper quadrant pain Status post laparoscopic cholecystectomy today. Patient noted to have gangrenous gallbladder. He was seen after surgery and had no complain. Physical Examination - Vital Signs Temperature: 99.2 F Blood Pressure: 146/72 Pulse: 82 Respirations: 16 Pulse Ox (%): 90 - Physical Exam General: Alert, In no apparent distress, Oriented x3 HEENT: Mucous membr. moist/pink Neck: Supple Respiratory: Clear to auscultation bilaterally, Normal air movement Cardiovascular: No edema, Regular rate/rhythm, Normal S1 S2 Gastrointestinal: Normal bowel sounds, Soft and benign, Other (SAMANTHA drain-RUQ.) Musculoskeletal: No erythema Integumentary: No rashes, No erythema Neurological: Other (Nonfocal) Assessment And Plan - Current Problems (Diagnosis) (1) Cholecystitis, acute Current Visit: Yes Status: Acute (2) HTN (hypertension) Current Visit: Yes Status: Acute - Plan Status post laparoscopic cholecystectomy with SAMANTHA drain left in place. Continue IV antibiotics and supportive measures. Duration of antibiotics per Dr. Blair. Diet resumed. Leukocytosis has trended down. Monitor CBC.
[2020-03-03] MEDS ORDERED: D5.45NS W/KCL 20MEQ 20 MEQ/1,000 ML BAG IV SCH (17:00)
--- NOTE | 2020-03-03 17:24 | CON ---
Date of Consultation: 03/03/2020 Reason For Consultation: Elevated BUN and creatinine, fluid management. History Of Present Illness: This is a 54-year-old gentleman with significant past medical history. All the information has been obtained from the record as the patient is seen in the Recovery, post carballo rgery, sedated, 54-year-old black gentleman with significant past medical history of hypertension, mo rbid obesity, rectal polyps. Patient came to the hospital complaining of some abdominal pain, nausea without any vomiting, found to have cholecystitis. The patient's primary workup showed elevation in BUN and creatinine. For that reason, we have been consulted. Reviewing the record for the patient upon arrival, creatinine 1.8 with GFR of 45. The patient was started on hydration. Creatinine trend ed down to 1.5, GFR of 55. The patient, back in 2018, had creatinine 1.5, GFR of 56. Past Medical History: Includes: 1.Hypertension. 2.Hyperlipidemia. 3.Chronic kidney disease, baseline creatinine 1.5, GFR of 55. Past Surgical History: Includes cholecystectomy. Allergies: TO ASPIRIN. Home Medications: Include metoprolol, valsartan, hydrochlorothiazide, codeine. Family History: Unobtainable. Review of Systems: Unobtainable. Physical Examination: General: Patient lying in bed, sedated, blood pressure of 146/72, pulse of 82, afebrile. Chest: Clear to auscultation. Heart: S1, S2. Regular. Abdomen: Mild tenderness in the right upper quadrant with drainage. Extremities: Trace edema. Neuro: The patient is sedated. Moving 4 extremities. No focal. Laboratory Data: Sodium 135, potassium 4.2, bicarb 24, BUN 15, creatinine 1.5, calcium 8.8. WBC 11. 6, H and H of 12.1/36.2, platelets 278. CT negative for obstruction. Assessment And Plan: 1.Acute kidney injury on chronic kidney disease secondary to prerenal toxic acute tubular necrosis, back to baseline, looked to me still on the dry side. I am going to continue hydration. I agree wit h holding ARB and hydrochlorothiazide for the time being and we will monitor the patient. 2.I am going to go ahead and send for PTH, protein, creatinine to stage the patient. 3.Hypokalemia. We will supplement. 4.Hypertension with the presence of acute kidney injury. Hold hydrochlorothiazide and ARB. 5.Cholecystitis. The patient was started on antibiotic. We will follow up with Surgery and primary . SHERRELL Voice ID: [id number] Report ID: [id number]
[2020-03-03 20:20] LABS: Urine Protein/Creatinine Ratio 0.68 ratio (<0.15)
--- NOTE | 2020-03-03 22:48 | OP ---
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 Preoperative Diagnosis: Acute cholecystitis and cholelithiasis. Postoperative Diagnoses: Acute cholecystitis and cholelithiasis with acute gangrenous cholecystitis. Estimated Blood Loss: Minimal. Specimens: Gallbladder. Findings: As above. Procedure: Diagnostic laparoscopy and open cholecystectomy. Anesthesia: General. Complications: None. Drains: SAMANTHA #10 flat. Disposition: Patient tolerated the procedure in stable condition, taken to Recovery in good conditio n. Procedure In Detail: Patient was brought to the OR and placed in supine position. General anesthesi a was begun. Patient was prepped and draped in usual sterile fashion. Marcaine 0.5% infiltrated loc ally. A #15 blade was used to make a 1 cm supraumbilical incision. Subcutaneous tissue divided. Fa scia was identified and divided. #1 Vicryl stay suture was placed. Peritoneal cavity was entered wi th sharp and blunt dissection. 12 mm trocar was placed into the peritoneal cavity under direct visio n. Pneumoperitoneum was established and then, a 5 mm trocar was placed in the epigastric region just to the right of midline. At this time, laparoscopy revealed extensive adhesions to the gallbladder, which was very difficult to see. Once the gallbladder was seen, it was gangrenous, very difficult t o grasp, very thin, very friable. Therefore, at this time based on the clinical condition, I opted t o convert this to an open case. Then, a right subcostal incision was made. Subcutaneous tissue divi ded. Fascia was identified and divided. The posterior sheath identified and divided and then, sharp and blunt dissection proceeded to take all the omental adhesions off the gallbladder. The gallbladd er was necrotic, it was gangrenous, it was intrahepatic and then retrograde dissection of the gallbla dder from the liver bed was begun. Cautery was used to control of the bleeding and cystic duct and c ystic artery were identified at the end of the dissection and clips were placed and gallbladder was r emoved and sent to Pathology as specimen. The entire right upper quadrant was irrigated. There was oozing noted from the liver bed which was controlled with cautery and then, Renetta and Surgicel was u tilized. The Keron-Tanner drain, #10 flat, was placed in the gallbladder fossa and secured with 3-0 nylon. This was observed for several minutes and there was no evidence of bleeding or bile leakage appreciated. All of the entire length of the gallbladder was very necrotic and gangrenous. Subseque ntly, there was no evidence of bleeding or bile leakage appreciated. Then, all counts were correct. Then, the posterior sheath was closed with #1 chromic. Wound was irrigated. Bleeding was controlle d with cautery. Then, #2 nylon was used to close the fascia. Subcutaneous wounds were irrigated. B leeding was controlled with cautery and 3-0 chromic was used to approximate the subcutaneous tissue l oosely and a staple was used to close the skin, stay sutures at the umbilicus tied to each other acro ss the fascial defect. Subcutaneous wounds were irrigated. Bleeding was controlled with cautery. 3 -0 chromic was used for subcutaneous tissue and staple was used to close the skin. Sterile dressing was applied. Patient was awakened and taken to Recovery in good general condition. MO/JONHL Voice ID: [id number] Report ID: [id number]
[2020-03-04] MEDS: PIPER/TAZO/NS 3.375gm 3.375 GM/100 ML BAG IVPB SCH ×3 (00:08→17:22)
[2020-03-04] MEDS: HEPARIN 5000 UNIT/ML 1 ML VIAL SQ SCH ×3 (00:10→17:24)
[2020-03-04 05:03] LABS: Absolute Lymphocytes (CBC) 0.6 K/uL (0.7-4.9); Basophils % 0.6 % (0-1.3); Lymphocytes % 6.4 % (15.3-44.8); MPV 8.1 fL (7.6-11.3); RBC Red Blood Cell Count 4.13 M/uL (4.33-5.43)
[2020-03-04 05:34] LABS: Albumin 2.5 g/dL (3.4-5.0); Magnesium 2.4 mg/dL (1.8-2.4); Phosphorus 1.4 mg/dL (2.5-4.9); Potassium 3.3 mmol/L (3.5-5.1); Thyroid Stimulating Hormone 0.306 uIU/mL (0.360-3.740); Uric Acid 4.5 mg/dL (3.5-7.2)
[2020-03-04] MEDS: NS KCL 20MEQ 20 MEQ/1,000 ML BAG IV SCH (06:00)
[2020-03-04] MEDS: HYDROCODONE/APAP 7.5/325 MG TAB PO PRN ×2 (06:20→14:47)
[2020-03-04 08:43] VITALS: O2SAT 98
--- NOTE | 2020-03-04 09:47 | PN ---
Date of Progress Note: 03/04/2020 Subjective: Patient is awake, alert, tolerating diet, ambulating, pain controlled on p.o. pain medic ation, afebrile. Laboratory data reviewed. Objective: VITAL SIGNS: Stable, afebrile. ABDOMEN: Benign. Assessment: Status post open cholecystectomy. Recommendations: Continue IV antibiotics for another 24 hours. Probable discharge tomorrow. Patien t is clinically doing very well. /MODL Voice ID: [id number] Report ID: [id number]
[2020-03-04] MEDS: METOPROLOL XL 100 MG TAB PO SCH (09:54)
[2020-03-04] MEDS: FAMOTIDINE 20 MG/2 ML VIAL IV SCH ×2 (09:56→21:03)
[2020-03-04] MEDS ORDERED: POTASSIUM PHOS IN 0.9 % NACL 15 MMOL/250 ML BAG IV ONE (10:34)
[2020-03-04] MEDS: POTASSIUM CL 40 MEQ in NA CHLORIDE 0.9% 500 ML IV SCH ×2 (10:49→18:57)
--- NOTE | 2020-03-04 11:11 | PN ---
Date of Progress Note: 03/04/2020 Subjective: The patient is status post cholecystectomy yesterday. Doing better, start oral diet. Physical Examination: Vital Signs: Blood pressure 136/69, pulse of 78. Patient had good urine output. Chest: Clear to auscultation. Heart: S1, S2. Regular. Abdomen: Soft, nontender. Patient had drainage on the cholecystectomy site. Extremities: No edema. Neurologic: Alert. No focal. Laboratory Data: WBC 10, H and H 11.6/35, platelets 283. Sodium 135, potassium 3.3, bicarb 26, BUN 18, creatinine down to 1.4. His baseline GFR of 59, uric acid 4.5, calcium 8.3 phosphorus 1.4, magne sium 2.4, albumin 2.5. TSH 0.3, PTH 155. PC ratio 0.6. Current Medications: Zosyn 3.375 q.8, metoprolol 100 b.i.d., Pepcid, Zofran, IV fluids. Assessment And Plan: 1.Acute kidney injury on chronic kidney disease. The acute component secondary to prerenal, superim posed with angiotensin receptor cristi and hydrochlorothiazide and poor intake secondary to the rosanna rointestinal loss superimposed with nonsteroidal use. The chronic kidney disease secondary to contra st-induced nephropathy/hypertension, nephrosclerosis, proteinuric nonnephrotic. The patient used to take ibuprofen 4 tablets 800 mg every other day for the last 1 year. Currently, kidney function star elizabeth backing to baseline, normal volume. Start p.o. intake. I am going to go ahead and discontinue i ntravenous fluid and we will monitor the patient. I will keep holding angiotensin receptor cristi a nd hydrochlorothiazide for the time being for full recovery. 2.Hypokalemia, hypophosphatemia secondary to poor intake. We will supplement and we will check for magnesium level. 3.Hypertension with presence of acute kidney injury as above. Hold hydrochlorothiazide and angioten sin receptor cristi. Continue current treatment. 4.Cholecystitis. Follow up with Surgery. Continue current antibiotic. 5.Hyperparathyroidism, mostly transient, secondary to renal failure. I do not see the need for john tment right now as calcium within normal limit and phosphorus within normal limit. MADELINE/SIGRID Voice ID: [id number] Report ID: [id number]
--- NOTE | 2020-03-04 16:50 | P.PN ---
Subjective Date of Service: 03/04/20 Chief Complaint: Right upper quadrant pain Status post laparoscopic cholecystectomy yesterday. Patient denies any complain. He has been afebrile. Physical Examination - Vital Signs Temperature: 98.2 F Blood Pressure: 136/63 Pulse: 86 Respirations: 18 Pulse Ox (%): 94 - Physical Exam General: Alert, In no apparent distress HEENT: Mucous membr. moist/pink Neck: Supple Respiratory: Clear to auscultation bilaterally, Normal air movement Cardiovascular: No edema, Regular rate/rhythm, Normal S1 S2 Gastrointestinal: Normal bowel sounds, Soft and benign, Other (SAMANTHA drain in right upper quadrant.) Integumentary: No rashes, No erythema Neurological: Other (Nonfocal) Assessment And Plan - Current Problems (Diagnosis) (1) Cholecystitis, acute Current Visit: Yes Status: Acute (2) HTN (hypertension) Current Visit: Yes Status: Acute (3) Acute worsening of stage 3 chronic kidney disease Current Visit: Yes Status: Acute - Plan Status post laparoscopic cholecystectomy with SAMANTHA drain left in place. Continue IV antibiotics and supportive measures. Diet resumed. Leukocytosis has resolved. Serum creatinine is trending down. Patient seen by nephrology. ARB and hydrochlorothiazide discontinued. IV fluid discontinued. Monitor renal panel. Hopefully transition to oral antibiotics for discharge tomorrow per Surgery. Physician Review: Patient Assessed, Agree with Above Assessment and Plan
[2020-03-05] MEDS: HEPARIN 5000 UNIT/ML 1 ML VIAL SQ SCH ×2 (01:00→08:23)
[2020-03-05] MEDS: PIPER/TAZO/NS 3.375gm 3.375 GM/100 ML BAG IVPB SCH ×2 (01:27→08:22)
[2020-03-05] MEDS: HYDROCODONE/APAP 7.5/325 MG TAB PO PRN ×2 (02:32→08:21)
[2020-03-05 06:18] LABS: Absolute Lymphocytes (CBC) 2.1 K/uL (0.7-4.9); Basophils % 0.7 % (0-1.3); Hematocrit 33.3 % (39.6-49.0); MPV 8.2 fL (7.6-11.3); RBC Red Blood Cell Count 3.95 M/uL (4.33-5.43)
[2020-03-05 06:22] LABS: Albumin 2.4 g/dL (3.4-5.0); Phosphorus 1.8 mg/dL (2.5-4.9); Potassium 3.4 mmol/L (3.5-5.1)
[2020-03-05] MEDS: FAMOTIDINE 20 MG/2 ML VIAL IV SCH (08:22)
[2020-03-05] MEDS: METOPROLOL XL 100 MG TAB PO SCH (08:23)
--- NOTE | 2020-03-05 08:57 | PN ---
Date of Progress Note: 03/05/2020 Subjective: Patient is awake, alert. No complaint. Tolerating diet, ambulating, pain controlled on p.o. pain medication, afebrile. Also, white count is normal with no left shift. Objective: Vital Signs: Stable. He is afebrile. Abdomen: Soft, nondistended, nontender. Dressing is clean dry and intact. SAMANTHA drain is 40 cc in the last 12 hours. It is serosanguineous. Assessment: Status post open cholecystectomy. Recommendations: Discharge instructions given. Patient to follow up with me in 1 week. Prescriptio n for Cipro, Flagyl, and Tylenol No. 3 given. /MODL Voice ID: [id number] Report ID: [id number]
[2020-03-05] MEDS ORDERED: POTASS/SODIUM PHOSPHATE 1 PKT POWD.PACK PO ONE (11:21)
--- NOTE | 2020-03-05 12:20 | P.DS ---
Admission Date: 03/02/20 Discharge Date: 03/06/20 Disposition: ROUTINE DISCHARGE Discharge Condition: GOOD Reason for Admission: Right upper quadrant pain Consultations: General surgery. Procedures: Laparoscopic cholecystectomy - Problems (1) Cholecystitis, acute Status: Acute (2) HTN (hypertension) Status: Acute (3) Acute worsening of stage 3 chronic kidney disease Status: Acute Brief History of Present Illness: 54-year-old gentleman presented to the ED with a complaint of abdominal pain of 1 week duration which did not respond to outpatient antibiotic therapy. His abdominal pain became worse and therefore presented to the ED where a CT abdomen and pelvis demonstrated acute cholecystitis with associated cholelithiasis. General surgery was informed and patient admitted for further management. Hospital Course: Patient admitted to the medical floor, treated with IV Zosyn. He was seen by Dr. Blair-general surgery. Laparoscopic cholecystectomy was performed. Patient was found to have gangrenous gallbladder. SAMANTHA drain was left in place. Patient was monitored for 2 more days postop with IV antibiotics. Patient became asymptomatic. He was seen by nephrology for acute worsening of baseline chronic kidney disease stage 3. His creatinine trended down during the hospital stay. Nephrology recommended to discontinue ARB. Patient is deemed clinically stable for discharge. He is discharged with oral ciprofloxacin and Flagyl. Vital Signs/Physical Exam: Temp Pulse Resp BP Pulse Ox 99.0 F 87 20 142/69 H 98 03/05/20 08:00 03/05/20 08:00 03/05/20 09:21 03/05/20 08:00 03/05/20 09:21 General: Alert, In no apparent distress Neck: Supple Respiratory: Clear to auscultation bilaterally, Normal air movement Cardiovascular: No edema Gastrointestinal: Normal bowel sounds, Soft and benign, Other (SAMANTHA drain.) Musculoskeletal: No erythema Integumentary: No rashes Neurological: Other (Nonfocal.) Laboratory Data at Discharge: WBC 9.3 K/uL (4.3-10.9) 03/05/20 05:26 Hgb 10.8 g/dL (13.6-17.9) L 03/05/20 05:26 Hct 33.3 % (39.6-49.0) L 03/05/20 05:26 Plt Count 355 K/uL (152-406) D 03/05/20 05:26 PT 17.6 SECONDS (9.5-12.5) H 03/02/20 12:00 INR 1.50 03/02/20 12:00 Sodium 138 mmol/L (136-145) 03/05/20 05:26 Potassium 3.4 mmol/L (3.5-5.1) L 03/05/20 05:26 BUN 13 mg/dL (7-18) 03/05/20 05:26 Creatinine 1.49 mg/dL (0.55-1.3) H 03/05/20 05:26 Glucose 102 mg/dL (74-106) 03/05/20 05:26 Uric Acid 4.5 mg/dL (3.5-7.2) 03/04/20 04:46 Phosphorus 1.8 mg/dL (2.5-4.9) L 03/05/20 05:26 Magnesium 2.4 mg/dL (1.8-2.4) 03/04/20 04:46 Total Bilirubin 0.9 mg/dL (0.2-1.0) 03/03/20 04:08 AST 18 U/L (15-37) 03/03/20 04:08 ALT 33 U/L (12-78) 03/03/20 04:08 Alkaline Phosphatase 80 U/L (45-117) 03/03/20 04:08 Lipase Cancelled 03/02/20 13:15 Home Medications: Metoprolol Succinate [Toprol Xl] 100 mg PO DAILY 02/26/18 Valsartan/Hydrochlorothiazide [Valsartan-Hctz 320-25 mg Tab] 1 tab PO DAILY 02/26/18 Codeine/APAP [Tylenol W/Codeine #3 tab] 1 tab PO Q4HP PRN #30 tab 02/27/18 NaCl 0.9% Irr Bottle [Ns Irrigation Bottle] 1,000 ml IRR DAILY #1 btl 02/27/18 Ciprofloxacin HCl [Cipro 500 MG Tablet] 500 mg PO Q12H 10 Days #20 tab 03/05/20 Codeine/APAP [Tylenol W/Codeine #3 tab] 1 tab PO Q4H PRN #40 tab 03/05/20 metroNIDAZOLE [Flagyl] 500 mg PO Q8H 10 Days #30 tablet 03/05/20 New Medications: Ciprofloxacin HCl [Cipro 500 MG Tablet] 500 mg PO Q12H 10 Days #20 tab metroNIDAZOLE [Flagyl] 500 mg PO Q8H 10 Days #30 tablet Codeine/APAP [Tylenol W/Codeine #3 tab] 1 tab PO Q4H PRN #40 tab PRN Reason: Pain Scale 5-7 (Moderate) Patient Discharge Instructions: May shower, keep wound covered with gauze. Record SAMANTHA q 12 and bring record to office. strip tubing PRN Diet: Low sodium Activity: No lifting more than 10 lbs Followup: Omar Blair MD [ACTIVE - CAN ADMIT] - 1 Week Time spent managing pt's care (in minutes): 36
[2020-03-05 16:04] VITALS: BP 151/75; TEMP 98.5
== END 2020-03-05 12:32 | disposition home or self-care (01) | DRG 414 ==
LOC: ER 11:10 → ERHOLD 13:10 → 2ND 15:14
PROVIDERS: ADMIT Internal Medicine; ATTEND Internal Medicine
PROC: 0FJ44ZZ Inspection of Gallbladder, Percutaneous Endoscopic Approach (ICD-10-PCS; 2020-03-03)
PROC: 0W9G00Z Drainage of Peritoneal Cavity with Drainage Device, Open Approach (ICD-10-PCS; 2020-03-03)
PROC: 0FT40ZZ Resection of Gallbladder, Open Approach (ICD-10-PCS; principal; 2020-03-03 09:15)
DX: K80.00 Calculus of gallbladder with acute cholecystitis without obstruction (principal); N17.0 Acute kidney failure with tubular necrosis; K82.A1 Gangrene of gallbladder in cholecystitis; E87.6 Hypokalemia; I12.9 Hypertensive chronic kidney disease with stage 1 through stage 4 chronic kidney disease, or unspecified chronic kidney disease; N18.3 Chronic kidney disease, stage 3 (moderate); Z79.899 Other long term (current) drug therapy; Z79.891 Long term (current) use of opiate analgesic; Z88.8 Allergy status to other drugs, medicaments and biological substances; G62.2 Polyneuropathy due to other toxic agents; T50.8X5A Adverse effect of diagnostic agents, initial encounter; E21.3 Hyperparathyroidism, unspecified; E78.5 Hyperlipidemia, unspecified
CPT/HCPCS: 36415; 71045; 74019; 74176; 80048; 80053; 80069; 80076; 81003; 82565; 82570; 83690; 83735; 83880; 83970; 84156; 84300; 84443; 84484; 84550; 85025; 85610; 88304; 93005; 96365; 96366; 96375; 99285; J1100; J1170; J1644; J2250; J2270; J2405; J2543; J2704; J2710; J3010; J7030; J7040; J7120; Q2035